=== PATIENT | female | born 1975 | race Caucasian/White ===

== ENCOUNTER 2017-03-12 10:54 | Day surgery (SDC) | payer BC ==
[~2017-03-12] VITALS: Ht 157.5 cm; Wt 75.6 kg
[~2017-03-12 10:54] MED LIST: AMABELZ 0.5 MG1 EACH PO; ASPIRIN EC81 M1 PO; COMPAZINE10 M PO; GINKGO BILOBA120 MG PO; LEXAPRO20 M1 PO; LYSINE500 M3 PO; OMEPRAZOLE20 M3 PO; OXYCONTIN20 M1 PO; PERCOCET 5/3251 TAB PO; POTASSIUM99 M5 PO; TOPROL XL25 M1 PO; VITAMIN B121000 MCG PO; VITAMIN B6200 M1 PO; XANAX0.5 M1 PO; ZOCOR20 M1 PO
[2017-03-13] MEDS ORDERED: ASPIRIN325 M3 PO (10:43)
[2017-03-13] MEDS ORDERED: ZOFRAN4 M2 PO (10:44)
[2017-03-13] MEDS ORDERED: PERCOCET 5-3251 EACH PO (10:44)
== END 2017-03-13 11:25 ==
LOC: SRG 10:54 → SHSB 10:54 → SRG 11:00 → ORE 14:29 → PACU 19:06 → 5EB 20:20 → SRG 03-13 11:25
PROC: 0QPK04Z Removal of Internal Fixation Device from Left Fibula, Open Approach (ICD-10-PCS; principal; 2017-03-12)
PROC: 0QBR0ZZ Excision of Left Toe Phalanx, Open Approach (ICD-10-PCS; 2017-03-12)
PROC: 0QBK0ZZ Excision of Left Fibula, Open Approach (ICD-10-PCS; 2017-03-12)
PROC: 0QBH0ZZ Excision of Left Tibia, Open Approach (ICD-10-PCS; 2017-03-12)
DX: Q78.8 Other specified osteochondrodysplasias (principal); T84.84XA Pain due to internal orthopedic prosthetic devices, implants and grafts, initial encounter; M21.612 Bunion of left foot; I10 Essential (primary) hypertension; F41.9 Anxiety disorder, unspecified; F32.9 Major depressive disorder, single episode, unspecified; K21.9 Gastro-esophageal reflux disease without esophagitis; F17.210 Nicotine dependence, cigarettes, uncomplicated; G47.33 Obstructive sleep apnea (adult) (pediatric); Z79.899 Other long term (current) drug therapy; Z88.0 Allergy status to penicillin; Z88.1 Allergy status to other antibiotic agents; Z91.048 Other nonmedicinal substance allergy status; X58.XXXA Exposure to other specified factors, initial encounter
CPT/HCPCS: G8978-GP-CJ; G8979-GP-CJ; G8980-GP-CJ; J1170; J1200; J2250; J2795; J3370